=== PATIENT | male | born 1980 | race Caucasian/White ===

== ENCOUNTER → 2016-10-04 | Outpatient (CLI) | payer OTHER ==
--- NOTE | 2016-10-04 12:15 | REP ---
Chest x-ray: Two views. History: TB. Positive PPD. No comparison views. Findings: There is a minimal dextroconvex curve in the thoracic spine. No other bony abnormality is seen. The lungs are well inflated and clear. The pleural angles are sharp. Heart size is normal. Pulmonary vasculature is not increased. No other abnormality. Impression: Negative chest x-ray. Signed by Anderson Mo MD 10/04/2016 03:09 P
== END ==
LOC: M WUC 10:53
PROVIDERS: ATTEND Surgery
DX: Z11.1 Encounter for screening for respiratory tuberculosis (principal)